=== PATIENT | male | born 1960 | race Caucasian/White ===

== ENCOUNTER 2021-02-19 20:34 | Inpatient (IN) | payer OTHER ==
[~2021-02-19] VITALS: Ht 165.1 cm; Wt 51.7 kg
--- NOTE | ~2021-02-19 | EMS ---
[place] [address] EMS Patient Care Report Name: GYPSY BACON Room #: PRE M.R.#: [id number] Admission: Attend Phys: Discharge: Date of : 58 Report #: [id number] THIS REPORT FOR: //name// Report Transmitted: 02/19/2021 20:10 EMS Care Summary [place], [place] Incident [id number] @ 02/19/2021 19:52 Incident Location [address] [place] [address] Patient GYPSY VEE Male, 60 Years 1960 Patient Address [address] [place] [address] Patient History Chronic Obstructive Pulmonary Disease (COPD),Hypertension (HTN),Emphysema, Patient Allergies No known allergies, Patient Medications Lisinopril, Atrovent, Albuterol, Chief Complaint COPD Disposition Transported No Lights/[place] Reason Breathing Problem Transported To [facility] Narrative Arrived on the scene, with P42, for a 60 y/o male that is walking to the ambulance with Fire. Fire said that he has been SOA for the last couple of days and he wants to go to the hospital. VS that they gave me were stable. Pt is in obvious resp. distress and is retracting. Pt is mid 70s [place] [address] EMS Patient Care Report Name: GYPSY BACON Room #: PRE M.R.#: [id number] Admission: Attend Phys: Discharge: Date of : 58 Report #: [id number] that he can not breathing and is having rapid and labored breathing. See Pt Assessment COPD See Flowchart. Assisted Pt onto the cot and to the ambulance. Assessment has the Pt retracting, very tight, and wheezing breath sounds. After got the breathing tx on the Pt, Pt began to relax and is breathing better but still a little labored. Transported to the hospital. Enroute, Pt became nauseated and vomited one time. Gave Pt Zofran to help with the nausea. No other changes or incidents. Moved the Pt from the cot to the hospital bed. Transferred care to receiving facility. Initial Vitals @20:20P: 96,R: 24,BP: 189/60,Pain: 0/10,GCS: 15,SpO2: 98,Revised Trauma: 12,MA Suspected: false @20:25P: 105,R: 24,BP: 90/62,Pain: 0/10,GCS: 15,CO: 2,SpO2: 99,Revised Trauma: 12,MA Suspected: false @20:06P: 101,R: 32,Pain: 0/10,GCS: 15,Glucose: 115,SpO2: 76,MA Suspected: false Assessments @20:04MENTAL:Person Oriented,Place Oriented,Time Oriented,Event Oriented,SKIN:HEENT:Head/Face: No Abnormalities,Eyes: No Abnormalities,Neck/Airway: No Abnormalities,LUNG SOUNDS:General: Nausea,General: Vomiting,Left Upper: No Abnormalities,Right Upper: No Abnormalities,ABDOMEN:General: Nausea,General: Vomiting,Left Upper: No Abnormalities,Right Upper: No Abnormalities,PELVIS//GI:EXTREMITIES:PULSE:NEURO: Impression Chronic Obstructive Pulmonary Disease (COPD) Procedures @20:04ALS AssessmentResponse: UnchangedSucceeded@20:09Saline Lock 5cc (20 ga) Site: Antecubital-LeftResponse: UnchangedSucceeded@20:20Albuterol - 2.5 Milligrams (mg) - NebulizedResponse: Improved@20:07Albuterol - 2.5 Milligrams (mg) - NebulizedResponse: Improved@20:07Atrovent - 0.5 Milligrams (mg) - NebulizedResponse: Improved@20:063-Lead ECGSucceeded@20:40Zofran - 4 Milligrams (mg) - Intravenous (IV)Response: Improved Timeline 19:50,Call Received 19:50,Dispatch Notified 19:52,Dispatched 19:53,En Route [address] [address] EMS Patient Care Report Name: GYPSY BACON Room #: PRE M.R.#: [id number] Admission: Attend Phys: Discharge: Date of : 58 Report #: [id number] 20:02,On Scene 20:04,At Patient 20:04,ALS Assessment,Response: UnchangedSucceeded, 20:06,3-Lead ECG,Succeeded, 20:06,BP: / M,PULSE: 101,RR: 32 R,SPO2: 76 Ox,ETCO2: ,B,PAIN: 0,GCS: 15, 20:07,Albuterol - 2.5 Milligrams (mg) - Nebulized,Response: Improved 20:07,Atrovent - 0.5 Milligrams (mg) - Nebulized,Response: Improved 20:09,Saline Lock 5cc 20 ga Site: Antecubital-Left,Response: UnchangedSucceeded, 20:17,Depart Scene 20:20,BP: 189/60 M,PULSE: 96,RR: 24 R,SPO2: 98 Ox,ETCO2: ,BG: ,PAIN: 0,GCS: 15, 20:20,Albuterol - 2.5 Milligrams (mg) - Nebulized,Response: Improved 20:25,BP: 90/62 M,PULSE: 105,RR: 24 R,SPO2: 99 Ox,ETCO2: ,BG: ,PAIN: 0,GCS: 15, 20:40,Zofran - 4 Milligrams (mg) - Intravenous (IV),Response: Improved 20:43,At Destination 20:51,Call Closed Disclaimer v1.1 Copyright 2020 [employer] This EMS Care Summary contains data elements from the applicable legal record (which may be displayed differently). It is designed to provide pertinent information for the following purposes: continuity of care, clinical quality, and state data reporting. The complete legal record is available to ED staff and administrators of the receiving hospital in [employer] Patient Tracker. All data is provided "as is."
[2021-02-19 20:35] VITALS: BP 123/90
[2021-02-19 20:45] LABS: BE(vivo) 16.4 mmol/L (-2 to +3); HCO3 48.7 mmol/L (22.0-26.0); PCO2 105.6 mmHg (35.0-45.0); PO2 80.1 mmHg (80.0-100.0); pH 7.282 (7.360-7.450); sO2 93.3 % (92.0-98.0)
[2021-02-19 21:26] LABS: ABSOLUTE NEUTROPHILS 7.3 thou/uL (1.4-8.2); BASOPHILS 0.8 % (0.0-2.0); EOSINOPHILS 0.8 % (0.0-3.0); HEMATOCRIT 40.1 % (42.0-52.0); HEMOGLOBIN 13.1 gm/dL (14.0-18.0); LYMPHOCYTES 6.5 % (24.0-44.0); MCH 32.1 pg (26.0-34.0); MCHC 32.6 g/dL (28.0-37.0); MCV 98.3 fL (80.0-100.0); MONOCYTES 5.6 % (1.0-8.0); PLATELET COUNT 246 thou/uL (150-400); POLYS 86.3 % (36.0-66.0); RBC 4.08 mil/uL (4.50-6.00); RDW 12.9 % (10.5-14.5); WBC 8.5 thou/uL (4.0-11.0)
[2021-02-19 21:36] LABS: BUN 9 mg/dL (7-18); CALCIUM 8.5 mg/dL (8.5-10.1); CHLORIDE 89 mmol/L (98-107); CREATININE 0.6 mg/dL (0.7-1.3); GLUCOSE 118 mg/dL (74-106); POTASSIUM 4.2 mmol/L (3.5-5.1); SODIUM 131 mmol/L (136-145)
[2021-02-19 21:37] LABS: CO2 > 45 mmol/L (21-32)
[2021-02-19 21:44] LABS: ALBUMIN 2.8 g/dL (3.4-5.0); DIRECT BILIRUBIN 0.1 mg/dL (<0.1-0.2); SGOT 25 U/L (15-37); SGPT 19 U/L (30-65); TOTAL BILIRUBIN 0.3 mg/dL (0.2-1.0); TOTAL PROTEIN 6.3 g/dL (6.4-8.2)
[2021-02-19 21:56] LABS: HCO3 57.4 mmol/L (22.0-26.0); PCO2 141.6 mmHg (35.0-45.0); PO2 98.2 mmHg (80.0-100.0); pH 7.226 (7.360-7.450); sO2 95.2 % (92.0-98.0)
[2021-02-19] MEDS ORDERED: ZESTRIL10 MG PO (22:15)
[2021-02-19] MEDS ORDERED: IPRAT-ALBUT 0.5-3 ML INH (22:15)
[2021-02-19] MEDS ORDERED: SYMBICORT160 MCG/4. INH (22:48)
[2021-02-20] VITALS (29 sets, daily range): BP systolic 76–191; BP diastolic 46–103
--- NOTE | 2021-02-20 02:02 | NUR ---
0110 -PT ARRIVED FROM ER VIA CART. PT ASSESSED PER ICU PROTOCOL, CONNECTED TO ICU MONITOR. PT ARRIVED ON BIPAP AT 35%. A&OX4, REPORTS HE DRINKS [address] ROSENBERG CALLED AND NOTIFIED OF PTS CONDITION. JENNIFER ROGERS CALLED AND UPDATED ON PTS CONDITION. CIWA ORDERS OBTAINED. 0200 - PT NOW CONFUSED AND ATTEMPTING TO TAKE BIPAP MASK OFF. TACHYPNEIC IN THE 40'S, MAINTAINING AN O2 SAT OF 97%.
[2021-02-20 05:15] LABS: HEMATOCRIT 37.1 % (42.0-52.0); HEMOGLOBIN 12.6 gm/dL (14.0-18.0); MCH 33.3 pg (26.0-34.0); MCHC 33.9 g/dL (28.0-37.0); MCV 98.1 fL (80.0-100.0); RBC 3.78 mil/uL (4.50-6.00); RDW 12.7 % (10.5-14.5); WBC 5.7 thou/uL (4.0-11.0)
[2021-02-20 05:23] LABS: BE(vivo) 18.7 mmol/L (-2 to +3); HCO3 49.6 mmol/L (22.0-26.0); PO2 65.6 mmHg (80.0-100.0); pH 7.338 (7.360-7.450); sO2 90.1 % (92.0-98.0)
[2021-02-20 05:24] LABS: PCO2 94.5 mmHg (35.0-45.0)
[2021-02-20 05:58] LABS: ANION GAP < 0 mmol/L (7-16); BUN 13 mg/dL (7-18); CALCIUM 8.3 mg/dL (8.5-10.1); CHLORIDE 89 mmol/L (98-107); CREATININE 0.9 mg/dL (0.7-1.3); GLUCOSE 127 mg/dL (74-106); POTASSIUM 4.8 mmol/L (3.5-5.1); SODIUM 132 mmol/L (136-145)
[2021-02-20 06:00] LABS: FOLIC ACID 22.6 ng/mL (8.6-58.9)
[2021-02-20 06:01] LABS: MAGNESIUM 1.8 mg/dL (1.8-2.4); PHOSPHORUS 3.7 mg/dL (2.5-4.9)
[2021-02-20 06:10] LABS: CO2 45 mmol/L (21-32)
--- NOTE | 2021-02-20 09:23 | NUR ---
Chart review. Unable to visit with emily sol with activity. Use of bipap support. Noted he smokes cig and drinks beer at home. Been to [facility] recently. Will cont following as needed for dc needs.
[2021-02-20 11:39] LABS: BE(vivo) 15.6 mmol/L (-2 to +3); HCO3 44.5 mmol/L (22.0-26.0); PO2 74.7 mmHg (80.0-100.0); pH 7.375 (7.360-7.450); sO2 93.9 % (92.0-98.0)
[2021-02-20 11:40] LABS: PCO2 77.8 mmHg (35.0-45.0)
[2021-02-21] VITALS (23 sets, daily range): BP systolic 117–156; BP diastolic 65–87
--- NOTE | 2021-02-21 10:38 | NUR ---
ASSUMED CARE OF PT AT 0700. DR. ELLIOTT AT BEDSIDE AT 1030. WOULD LIKE NOCTURNAL BIPAP FOR PT WHILE ADMITTED AND AT HOME.
--- NOTE | 2021-02-21 12:22 | EKG ---
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 BURRIS : 1960 Requested By: Isabell Ramirze Order Number: [id number] MD: Josué Pan Measurements Intervals [place] Rate: 88 P: 53 CO: 158 QRS: 16 QRSD: 96 T: 88 QT: 374 QTc: 453 Interpretive Statements Sinus rhythm Left ventricular hypertrophy Anterior Q waves, possibly due to LVH Baseline wander in lead(s) V6 No previous ECG available for comparison Electronically Signed On 02-21-2021 12:22:32 CDT by Josué Pan [email or web address] <ELECTRONICALLY SIGNED> By: Josué Pan MD, [facility] 02/21/21 1222 43 Josué Pan MD, [facility] /EPI
--- NOTE | 2021-02-21 13:34 | NUR ---
SPOKE TO PT SISTER AKUA AT 1145. UPDATED ON POC AND ANSWERED QUESTIONS.
--- NOTE | 2021-02-21 14:08 | NUR ---
PT REQUESTING TO LEAVE AMA. CONTACTED DR. ELLIOTT HE SAID THAT IT IS NOT APPROPRAIATE FOR PT TO LEAVE DUE TO HIS MEDICAL CONDITION. ATTEMPTED TO CONTACT PT'S SISTER AKUA, BUT THE NUMBER ON FILE IS NOT A WORKING NUMBER.
--- NOTE | 2021-02-21 15:25 | NUR ---
Per attending in AM review of case: will follow as pulmonary notes for further stabilization. Pulmonology review as COPD exacerbation and a baseline of 2-03L 02 with HTN and both tobacco and ETOH use daily. Last noted at 02 sat of 98 on 2L via [place]. CM will follow per MD direction as needed as sister Fanta at [phone] is listed as next of kin. Noting will need therapy evaluations once deemed medically able to determine next level of care for discharge planning. Noted nursing note of attempts to reach Fanta the patient's sister without success of current success and left voicemail for Fanta to return a call to ICU at [phone] and case management at [phone].
--- NOTE | 2021-02-21 18:39 | NUR ---
SPOKE TO PT AT 1400. SHE EXPLAINED THAT DR. ELLIOTT UPDATED HER ON PT'S WISHES TO LEAVE AMA AND SHE UNDERSTANDS THAT IT IS NOT SAFE FOR HIM TO LEAVE AT THIS TIME. SPOKE WITH AND PT IS AGREEABLE TO STAY.
[2021-02-22] VITALS: BP 140/80
[2021-02-22 00:38] VITALS: BP 147/70
[2021-02-22 04:00] VITALS: BP 149/72
[2021-02-22 04:42] LABS: ANION GAP < 0 mmol/L (7-16); BUN 21 mg/dL (7-18); CALCIUM 8.6 mg/dL (8.5-10.1); CHLORIDE 95 mmol/L (98-107); CO2 39 mmol/L (21-32); CREATININE 0.9 mg/dL (0.7-1.3); GLUCOSE 117 mg/dL (74-106); MAGNESIUM 1.7 mg/dL (1.8-2.4); PHOSPHORUS 2.4 mg/dL (2.5-4.9); SODIUM 132 mmol/L (136-145)
[2021-02-22 07:55] VITALS: BP 148/74
--- NOTE | 2021-02-22 08:48 | NUR ---
PT TRANSFERRED TO UNIT AFTER MIDNIGHT. UPON ASSESSMENT, PT AOX4. PT DENIES PAIN AND SOB WHILE ON 3L O2 VIA NC, REPORTS SOB WITH EXERTION, NO DESATURATIONS NOTED. PT TOLERATING PO INTAKE OF FLUIDS AND REGULAR DIET WITHOUT ISSUE. PT WITHOUT NAUSEA OR EMESIS. PT VOIDING PER URINAL. PT RESTING IN BED FOR REMAINDER OF SHIFT, NOTED TO SHIFT INDEPENDENTLY. PT REPORTS TINGLING IN BOTH FEET, CAPILLARY REFILL LESS THAN 3SEC, PERIPHERAL PULSES PALPABLE IN ALL EXTREMITIES. PT ENCOURAGED TO NOTIFY STAFF FOR ALL NEEDS, CALL LIGHT WITHIN REACH, BED ALARM ON, BED LOCKED IN LOWEST POSITION, FREQUENT MONITORING WILL CONTINUE.
--- NOTE | 2021-02-22 15:20 | NUR ---
PT IS A&OX4. PT IS CURRENTLY ON 3L NC, WHICH HE WEARS AT HOME. PT DENIES ANY PAIN OR DISCOMFORT AND IS TOLERATING DIET AND MEDICATIONS.
[2021-02-22 19:50] VITALS: BP 142/83
[2021-02-23 04:35] VITALS: BP 164/95
--- NOTE | 2021-02-23 05:26 | NUR ---
PT LYING IN BED. VOIDING PER URINAL. TYLENOL PROVIDING PAIN RELIEF. RESTING COMFORTABLY. NO NEEDS VOICED. CALL LIGHT WITHIN REACH. FREQUENT OBSERVATION.
[2021-02-23 08:30] VITALS: BP 157/82
[2021-02-23 12:05] VITALS: BP 149/80
[2021-02-23 13:53] LABS: BE(vivo) 9.9 mmol/L (-2 to +3); HCO3 35.9 mmol/L (22.0-26.0); PCO2 54.5 mmHg (35.0-45.0); PO2 74.1 mmHg (80.0-100.0); pH 7.437 (7.360-7.450); sO2 95.1 % (92.0-98.0)
[2021-02-23 16:00] VITALS: BP 130/54
[2021-02-23 16:15] VITALS: BP 138/80
[2021-02-23 19:50] VITALS: BP 132/87
[2021-02-24 04:23] LABS: HEMATOCRIT 35.7 % (42.0-52.0); MCH 32.7 pg (26.0-34.0); MCHC 33.5 g/dL (28.0-37.0); MCV 97.8 fL (80.0-100.0); RBC 3.65 mil/uL (4.50-6.00); RDW 13.4 % (10.5-14.5); WBC 8.2 thou/uL (4.0-11.0)
[2021-02-24 04:35] VITALS: BP 158/82
[2021-02-24 04:39] LABS: CALCIUM 8.2 mg/dL (8.5-10.1); CREATININE 0.9 mg/dL (0.7-1.3); MAGNESIUM 1.8 mg/dL (1.8-2.4); POTASSIUM 4.2 mmol/L (3.5-5.1)
--- NOTE | 2021-02-24 05:43 | NUR ---
PT AMBULATING TO BATHROOM WITH STANDYBY ASSIST AND IS TOLERATING FAIR. DENIES NEED FOR PAIN MEDICINE. RESTING COMFORTABLY. NO NEEDS VOICED. CALL LIGHT WITHIN REACH. FREQUENT OBSERVATION.
[2021-02-24 08:00] VITALS: BP 152/63
[2021-02-24 11:00] VITALS: BP 133/80
[2021-02-24 16:00] VITALS: BP 114/60
[2021-02-24 19:15] VITALS: BP 147/87
--- NOTE | 2021-02-25 03:44 | NUR ---
Assumed pt care at 1900. Pt is alert and oriented. Call light within reach. No sign of distress noted in pt. Assessment completed and documented. Denies pain. Scheduled meds administered to pt. Pt is stable through the night. Continue to monitor. No further needs at this time.
[2021-02-25 03:59] VITALS: BP 155/86
[2021-02-25 08:00] VITALS: BP 151/92
[2021-02-25] MEDS ORDERED: PREDNISONE 20 M20 M1 PO (13:40)
[2021-02-25] MEDS ORDERED: LORAZEPAM 0.50.5 MG PO (13:40)
[2021-02-25] MEDS ORDERED: PRENATAL PO (13:40)
[2021-02-25] MEDS ORDERED: Nicotine Transdermal TRANSDERM (13:40)
[2021-02-25] MEDS ORDERED: LEVOFLOXACIN500 MG PO (13:40)
[2021-02-25] MEDS ORDERED: VITAMIN B-1100 M2 PO (13:40)
[2021-02-25] MEDS ORDERED: ACETAMINOPHEN325 M1 PO (13:40)
[2021-02-25 13:45] VITALS: BP 155/86
--- NOTE | 2021-02-25 17:27 | NUR ---
after 6 days in hospital able to update patients "patient pay" status with ins. patient with need for HH care he has no preference. Patient reports no PCP. Hospitalist to follow for HH care. Jose G with referral and accepting. Plan to see patient THurs. Faxed orders for start of care. Liason called patient today. Patient reports he has oxygen at home from [facility].
== END 2021-02-25 14:44 | disposition home health service (06) | DRG 193 ==
LOC: ER 20:34 → EDBD 20:34 → 2N 22:29 → EROBS 22:29 → ICU 22:29 → 2N 02-22 00:37
PROVIDERS: Emergency Medicine; Nurse Practitioner Family; Pediatrics; ADMIT Internal Medicine; ATTEND Internal Medicine
PROC: 5A09357 Assistance with Respiratory Ventilation, Less than 24 Consecutive Hours, Continuous Positive Airway Pressure (ICD-10-PCS; principal; 2021-02-19)
PROC: 5A09357 Assistance with Respiratory Ventilation, Less than 24 Consecutive Hours, Continuous Positive Airway Pressure (ICD-10-PCS; 2021-02-20)
PROC: 5A09357 Assistance with Respiratory Ventilation, Less than 24 Consecutive Hours, Continuous Positive Airway Pressure (ICD-10-PCS; 2021-02-21)
PROC: 5A09357 Assistance with Respiratory Ventilation, Less than 24 Consecutive Hours, Continuous Positive Airway Pressure (ICD-10-PCS; 2021-02-22)
DX: J18.9 Pneumonia, unspecified organism (principal); J96.21 Acute and chronic respiratory failure with hypoxia; J96.22 Acute and chronic respiratory failure with hypercapnia; J44.1 Chronic obstructive pulmonary disease with (acute) exacerbation; F10.239 Alcohol dependence with withdrawal, unspecified; J44.0 Chronic obstructive pulmonary disease with (acute) lower respiratory infection; F17.210 Nicotine dependence, cigarettes, uncomplicated; I10 Essential (primary) hypertension; J20.9 Acute bronchitis, unspecified; F10.20 Alcohol dependence, uncomplicated; E78.5 Hyperlipidemia, unspecified; R53.81 Other malaise; Z20.822 Contact with and (suspected) exposure to COVID-19; Z71.6 Tobacco abuse counseling; Z91.19 Patient's noncompliance with other medical treatment and regimen; Z79.899 Other long term (current) drug therapy
CPT/HCPCS: 10078; 10081; 10797

== ENCOUNTER 2021-03-03 17:34 | Inpatient (IN) | payer OTHER ==
[~2021-03-03] VITALS: Ht 165.1 cm; Wt 50.3 kg
--- NOTE | ~2021-03-03 | EMS ---
[place] [id number] EMS Patient Care Report Name: GYPSY PEREZ Room #: 240-P ADM IN M.R.#: [id number] Admission: 03/03/21 Attend Phys: Khoa Almaguer MD Discharge: Date of : 58 Report #: [id number] THIS REPORT FOR: //name// Report Transmitted: 03/04/2021 08:57 EMS Care Summary [place], [place]/[facility] Incident [id number] @ 03/03/2021 16:49 Incident Location [address] [place] [address] Patient GYPSY PEREZ Male, 60 Years 1960 Patient Address [address] [place] [address] Patient History Chronic Obstructive Pulmonary Disease (COPD),Hypertension (HTN),Depression, Patient Allergies No known allergies, Patient Medications Lisinopril, Diltiazem, Bupropion, Chief Complaint Shortness of air Disposition Transported No Lights/[place] Reason Breathing Problem Transported To [facility] Narrative Progressively worse shortness of air. Pt. also complains of swelling in his lower extremities and feet for about 3 weeks now. Pt. is on 2 lpm oxygen all the time, and 3-4 with exertion. Pt. denies chest pain, [place] [address] EMS Patient Care Report Name: GYPSY PEREZ Room #: 240-P ADM IN M.R.#: [id number] Admission: 03/03/21 Attend Phys: Khoa Almaguer MD Discharge: Date of : 58 Report #: [id number] Pt. found sitting in a chair with labored breathing but tolerating it well rule out COPD exacerbation vs. CHF Vitals, oxygen bumped up and continued at 4 lpm, Assisted to cot, secured, loaded, IV, transported to [place] without changes, assisted to bed in room 11, care transferred to staff counsel with report given Initial Vitals @17:17P: 101,R: 20,BP: 152/84,Pain: 0/10,GCS: 15,SpO2: 97,Revised Trauma: 12, Assessments @17:14MENTAL:Time Oriented,Person Oriented,Event Oriented,Place Oriented,SKIN:HEENT:LUNG SOUNDS:ABDOMEN:PELVIS//GI:EXTREMITIES:PULSE:Radial: 2+ Normal,NEURO: Impression Respiratory disorder Procedures @17:03ALS AssessmentResponse: UnchangedSucceeded@17:10StretcherResponse: Unchanged@17:15Saline Lock 10cc (20 ga) Site: Forearm-LeftResponse: UnchangedSucceeded Timeline 16:48,Call Received 16:48,Dispatch Notified 16:49,Dispatched 16:49,En Route 16:59,On Scene 17:01,At Patient 17:03,ALS Assessment,Response: UnchangedSucceeded, 17:10,Stretcher,Response: Unchanged 17:13,Depart Scene 17:15,Saline Lock 10cc 20 ga Site: Forearm-Left,Response: UnchangedSucceeded, 17:17,BP: 152/84 M,PULSE: 101,RR: 20 R,SPO2: 97 Ox,ETCO2: ,BG: ,PAIN: 0,GCS: 15, 17:49,At Destination 17:58,Call Closed Disclaimer v1.1 Copyright 2020 [employer] This EMS Care Summary contains data elements from the applicable legal record (which may be displayed differently). It is designed to provide pertinent information for the following purposes: continuity of care, clinical quality, and state data reporting. The complete legal record is available to ED staff [facility] [address] [place] [address] EMS Patient Care Report Name: GYPSY PEREZ Room #: 240-P ADM IN [facility].#: [id number] Admission: 03/03/21 Attend Phys: Khoa Almaguer MD Discharge: Date of : 58 Report #: [id number] and administrators of the receiving hospital in [employer]'s Patient Tracker. All data is provided "as is."
[2021-03-03 17:34] VITALS: BP 161/87
[~2021-03-03 17:34] MED LIST: ACETAMINOPHEN325 M1 PO; IPRAT-ALBUT 0.5-3 ML INH; LEVOFLOXACIN500 MG PO; LORAZEPAM 0.50.5 MG PO; Nicotine Transdermal TRANSDERM; PREDNISONE 20 M20 M1 PO; PRENATAL PO; SYMBICORT160 MCG/4. INH; VITAMIN B-1100 M2 PO; ZESTRIL10 MG PO
[2021-03-03 18:04] LABS: HEMOGLOBIN 12.3 gm/dL (14.0-18.0); MCH 32.1 pg (26.0-34.0); MCHC 32.5 g/dL (28.0-37.0); MCV 98.9 fL (80.0-100.0); PLATELET COUNT 318 thou/uL (150-400); RBC 3.84 mil/uL (4.50-6.00); RDW 13.2 % (10.5-14.5); WBC 9.7 thou/uL (4.0-11.0)
[2021-03-03 18:07] LABS: ANION GAP < 0 mmol/L (7-16); BUN 11 mg/dL (7-18); CALCIUM 8.5 mg/dL (8.5-10.1); CHLORIDE 94 mmol/L (98-107); CO2 41 mmol/L (21-32); CREATININE 0.5 mg/dL (0.7-1.3); GLUCOSE 155 mg/dL (74-106); POTASSIUM 5.1 mmol/L (3.5-5.1); SODIUM 130 mmol/L (136-145)
[2021-03-03 18:10] LABS: BE(vivo) 11.4 mmol/L (-2 to +3); PCO2 101.9 mmHg (35.0-45.0); PO2 111.9 mmHg (80.0-100.0); pH 7.243 (7.360-7.450)
[2021-03-03 18:20] LABS: ALBUMIN 2.5 g/dL (3.4-5.0); SGOT 22 U/L (15-37); SGPT 23 U/L (30-65); TOTAL BILIRUBIN 0.1 mg/dL (0.2-1.0); TOTAL PROTEIN 5.6 g/dL (6.4-8.2)
[2021-03-03 19:16] VITALS: BP 126/78
[2021-03-03 19:16] LABS: ABSOLUTE NEUTROPHILS 9.1 thou/uL (1.4-8.2)
[2021-03-03 20:55] LABS: BE(vivo) 14.2 mmol/L (-2 to +3); HCO3 42.6 mmol/L (22.0-26.0); PCO2 72.4 mmHg (35.0-45.0); PO2 79.9 mmHg (80.0-100.0); pH 7.388 (7.360-7.450); sO2 95.2 % (92.0-98.0)
[2021-03-04] VITALS (7 sets, daily range): BP systolic 98–151; BP diastolic 52–87
[2021-03-04 05:37] LABS: HEMATOCRIT 35.6 % (42.0-52.0); MCH 32.9 pg (26.0-34.0); MCHC 33.7 g/dL (28.0-37.0); MCV 97.5 fL (80.0-100.0); RBC 3.65 mil/uL (4.50-6.00); RDW 12.9 % (10.5-14.5); WBC 5.4 thou/uL (4.0-11.0)
[2021-03-04 06:14] LABS: ANION GAP < 0 mmol/L (7-16); BUN 14 mg/dL (7-18); CALCIUM 8.5 mg/dL (8.5-10.1); CHLORIDE 91 mmol/L (98-107); CO2 43 mmol/L (21-32); CREATININE 0.8 mg/dL (0.7-1.3); GLUCOSE 119 mg/dL (74-106); SODIUM 132 mmol/L (136-145)
--- NOTE | 2021-03-04 07:17 | EKG ---
[address] [address] ELECTROCARDIOGRAM REPORT Name: LAURELYOLANDAGYPSY Room #: 240-P ADM IN M.R.#: [id number] Admission: 03/03/21 Attend Phys: Khoa Almaguer MD Discharge: Date of : 58 Report #: [id number] [facility] ED Test Date: 2021-03-03 Test Time: 17:39:08 Pat Name: GYPSY PEREZ Department: Room: 240 Gender: M Scale Expert: EDITA : 1960 Requested By: Jimmy Bowser Order Number: [id number] MD: Yobani Fernandez Measurements Intervals [place] Rate: 95 P: 96 [place]: 152 QRS: 29 QRSD: 89 T: 72 QT: 358 QTc: 450 Interpretive Statements Sinus rhythm Anteroseptal infarct, age indeterminate Compared to ECG 02/19/2021 20:44:20 Myocardial infarct finding now present Left ventricular hypertrophy no longer present Q waves no longer present Electronically Signed On 03-04-2021 7:17:32 CDT by Yobani Fernandez [email or web address] <ELECTRONICALLY SIGNED> By: Yobani Fernandez MD, [facility] 03/04/21 0717 1739 1739 Yobani Fernandez MD, [facility] /EPI
--- NOTE | 2021-03-04 09:03 | 2DMMODE ---
[facility] [place] [address] [address] 2 D/M-MODE ECHOCARDIOGRAM Name: GYPSY PEREZ Room #: 240-P ADM IN M.R.#: [id number] Admission: 03/03/21 Attend Phys: Khoa Almaguer MD Discharge: Date of : 58 Report #: [id number] THIS REPORT FOR: cc: MATA - No family physician/PCP FAM - No family physician/PCP Yobani Fernandez MD [facility] ~ APPROVED REPORT Study performed: 03/04/2021 08:03:28 EXAM: Comprehensive 2D, Doppler, and color-flow Echocardiogram Patient Location: ICU Room #: 240 Status: routine BSA: 1.57 HR: 70 bpm BP: 98/52 mmHg Rhythm: NSR Other Information Study Quality: Adequate Technically limited study due to thin body habitus. COPD. Only subcostal view.. Indications Short of breath, elevated troponin, BLE. Hx: COPD, ETOH/Tobacco abuse, HTN, HLP. 2D Dimensions RVDd: 32.57 mm IVSd: 13.76 (7-11mm) LVOT Diam: 20.04 (18-24mm) LVDd: 44.80 mm PWd: 14.34 (7-11mm) LVDs: 35.18 (25-40mm) Left Atrium: 31.23 (27-40mm) Aortic Root: 33.98 mm Volumes Left Atrial Volume (Systole) Single Plane 4CH: 69.49 mL Single Plane 2CH: 50.33 mL LA ESV Index: 42.00 mL/m2 Aortic Valve AoV Peak Maciej.: 4.49 m/s [facility] [address] [place] [address] 2 D/M-MODE ECHOCARDIOGRAM Name: GYPSY PEREZ Room #: 240-P [facility] IN ..#: [id number] Admission: 03/03/21 Attend Phys: Audra Hart Discharge: Date of : 58 Report #: [id number] AO Peak Gr.: 80.71 mmHg LVOT Max P.96 mmHg AO Mean Gr.: 49.60 mmHg AO V2 Mean: 3.36 m/s LVOT Max V: 0.70 m/s AO V2 VTI: 108.47 cm LISANDRA Vmax: 0.49 cm2 AI Vmax: 4.68 m/s AI [place]: 3.54 m/s2 AI PHT: 383.09 ms Mitral Valve E/A Ratio: 0.7 MV Decel. Time: 197.32 ms MV E Max Maciej.: 0.52 m/s MV A Maciej.: 0.71 m/s MV PHT: 57.22 ms IVRT: 100.35 ms Pulmonary Valve PV Peak Maciej.: 1.03 m/s PV Peak Gr.: 4.27 mmHg Tricuspid Valve TR Peak Maciej.: 2.70 m/s RAP Estimate: 10.00 mmHg TR Peak Gr.: 29.22 mmHg PA Pressure: 39.00 mmHg Left Ventricle The left ventricle is normal size. Mild to moderate concentric left ventricular hypertrophy. Left ventricular systolic function is low normal. LVEF is 50%. Mild diastolic dysfunction is present (impaired relaxation pattern). Right Ventricle The right ventricle is normal size. The right ventricular systolic function is normal. Atria Left atrium is mildly dilated. The right atrium size is normal. Aortic Valve Aortic valve is heavily calcified. Mild aortic regurgitation. There is severe valvular aortic stenosis. Calculated aortic valve area is 0.5 cm2 with maximum pressure gradient of 81 mmHg and mean pressure gradient of 50 mmHg. Mitral Valve [facility] [address] [place] [address] 2 D/M-MODE ECHOCARDIOGRAM Name: GYPSY PEREZ Room #: 240-P [facility] IN .R.#: [id number] Admission: 03/03/21 Attend Phys: Audra Hart Discharge: Date of : 58 Report #: [id number] The mitral valve is normal in structure. Trace mitral regurgitation. No evidence of mitral valve stenosis. Tricuspid Valve The tricuspid valve is normal in structure. Trace tricuspid regurgitation. Estimated PAP is 35-40mmHg. Pulmonic Valve The pulmonary valve is normal in structure. Mild to moderate pulmonic regurgitation. Great Vessels The aortic root is normal in size. Ascending aorta is not well visualized. IVC is normal in size and collapses <50% with inspiration. Pericardium There is no pericardial effusion. <Conclusion> Normal left ventricle size with mild to moderate concentric hypertrophy Ejection fraction 50% Normal right ventricular size/function Left atrium mildly dilated Aortic valve heavily calcified Severe aortic valve stenosis aortic valve area estimated 0.5 cm Aortic valve mean gradient of 50 mmHg Mild aortic valve insufficiency Moderate mitral valve insufficiency Trace tricuspid valve insufficiency Pulmonary systolic pressure estimated 35 mmHg No pericardial effusion Normal aortic root size. <ELECTRONICALLY SIGNED> By: Yobani Fernandez MD, FACC 03/04/21901 1 1 Yobani Fernandez MD, FACC /INF
[2021-03-04 09:27] LABS: BE(vivo) 18.6 mmol/L (-2 to +3); HCO3 45.8 mmol/L (22.0-26.0); PCO2 68.5 mmHg (35.0-45.0); PO2 92.1 mmHg (80.0-100.0); pH 7.443 (7.360-7.450)
--- NOTE | 2021-03-04 11:51 | NUR ---
Spoke with pt over phone - gave general update and answered all questions.
--- NOTE | 2021-03-04 12:03 | NUR ---
Chart review. Cm visited with yandy and sister all via same phone call to yandy # [phone]. Intro to cm and dcp. [employer]OUR[employer] he live home with , no stair, manage own medication. home oxygen 2L nasal cannula. No home bipap or cpap at home. drives vehicle. no pcp. no rehab or hh in past. does not work, he cant work he is on disability per yandy. Not covid vaccinated, had many false positive recently and went to store to get covid vaccine and they were closed per yandy.
--- NOTE | 2021-03-04 13:55 | EKG ---
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 : 1960 Requested By: Lisa Tristan Order Number: [id number] MD: Yobani Fernandez Measurements Intervals [place] Rate: 66 P: 72 [place]: 162 QRS: 36 QRSD: 96 T: 44 QT: 457 QTc: 479 Interpretive Statements Sinus rhythm Ventricular premature complex Probable left atrial enlargement Left ventricular hypertrophy J point elevation Borderline prolonged QT interval Compared to ECG 03/03/2021 17:39:08 Ventricular premature complex(es) now present Left ventricular hypertrophy now present ST (T wave) deviation now present Myocardial infarct finding still present Electronically Signed On 03-04-2021 13:55:05 CDT by Yobani Fernandez [email or web address] <ELECTRONICALLY SIGNED> By: Yobani Fernandez MD, FACC 03/04/21 1355 0932 0932 Yobani Fernandez MD, FAC /EPI
[2021-03-05 01:06] LABS: GLYCOHEMOGLOBIN (HGB A1C) 5.9 % (4.8-5.6)
--- NOTE | 2021-03-05 03:05 | NUR ---
PATIENT TRANSFERRED TO UNIT FROM ICU VIA WHEELCHAIR. PATIENT IS AAOX4 AND FOLLOWING ALL COMMANDS. PATIENT IS ON 3L NC. PATIENT IS ABLE TO AMBULATE BUT IS UNSTEADY. REQUIRES STANDBY ASSISTANCE. PATIENT HAS A NONPRODUCTIVE COUGH. URINATING WITHOUT ANY ISSUES. SR ON THE MONITOR. SCORED 0 ON HIS CIWA. DENIES PAIN OR NEEDS AT THIS TIME. NO ISSUES WITH SKIN NOTED. COMPLIANT WITH MEDICATION AND TREATMENT. WILL CONTINUE TO MONITOR FOR CHANGES IN STATUS.
[2021-03-05 04:12] VITALS: BP 155/71
[2021-03-05 08:00] VITALS: BP 158/70
--- NOTE | 2021-03-05 11:59 | NUR ---
60-year-old male remains for treatment which continues for: Acute on chronic hypercapnic respiratory failure, COPD exacerbation, Elevated Troponin, Hyperglycemia, HTN, Tobaccoism and alcoholism. Per attending AM MD review: Plan to discharge home with [facility]. Sister Fanta at [phone] remains listed as next of kin. Notably patient discharged on 02-25-21 to [facility] with Hospitalist following as patient has no PCP. Therapy evaluations will be needed in determining next level of care. CM continues to follow MD's direction for care and transition and will intervene as needs are identified from planned discharge for today.
[2021-03-05 12:13] VITALS: BP 131/81
[2021-03-05] MEDS ORDERED: NORVASC5 MG PO (12:20)
[2021-03-05] MEDS ORDERED: PEPCID20 MG PO (12:20)
[2021-03-05] MEDS ORDERED: IPRAT-ALBUT 0.5-3 ML INH (12:20)
[2021-03-05] MEDS ORDERED: PREDNISONE 20 M20 M1 PO (12:20)
[2021-03-05] MEDS ORDERED: AZITHROMYCIN500 MG PO (12:20)
[2021-03-05 12:30] VITALS: BP 131/81
--- NOTE | 2021-03-05 12:31 | NUR ---
Pt dcing home today. He has declined f/u visits per Harriett OTOOLE x 2. He has been seen by therapy this morning and was indep with gait/adls. No f/u recommended. Pt has home o2 in place and Jose G ortiz did setup a new pcp appt for him for early next week. The pt lives with his and sister. No cm interventions indicated. Dc home today.
[2021-03-05 13:51] VITALS: BP 131/81
--- NOTE | 2021-03-05 15:15 | NUR ---
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 CONDUCTED D/C EDUCATION WITH PT. PT REQUESTED PHARMACY TO DIFFERENT LOCATION. EDUCATION CONDUCTED ON RX MEDICATION CHANGES. PT COMMUNICATED UNDERSTANDING. PT TO D/C HOME WITH SISTER. NO CONCERNS AT THIS TIME.
--- NOTE | 2021-03-06 10:26 | NUR ---
SISTER CALLED TO SAY THAT THE PHARMACY LISTED IN [place] DID NOT GET THE PRESCRIPTIONS ([facility]) NOTE BY D/C NURSE STATED THAT PT CHANGED [facility] - CHECKED WITH [facility] AND THEY DID NOT GET THE PRESCRIPTIONS. CALLED SISTER AND STATED THAT PREVIOUS PHARMACY THAT WAS LISTED MUST HAVE BEEN SENT TO THE PRIOR PHARMACIES LISTED - SISTER STATED THIS WAS JOSE AND SHE WOULD CALL AND CHECK WITH THEM TO SEE IF THEY HAD THE PRESCRIPTIONS.
== END 2021-03-05 17:15 | disposition home or self-care (01) | DRG 189 ==
LOC: ER 17:34 → EROBS 20:37 → ICU 20:37 → EROBS 20:38 → ICU 03-04 01:58 → 2N 03-04 23:12
PROVIDERS: Nurse Practitioner; Nurse Practitioner Family; Pediatrics; ADMIT Hospitalist; ATTEND Hospitalist
PROC: 5A09357 Assistance with Respiratory Ventilation, Less than 24 Consecutive Hours, Continuous Positive Airway Pressure (ICD-10-PCS; principal; 2021-03-03)
PROC: 5A09357 Assistance with Respiratory Ventilation, Less than 24 Consecutive Hours, Continuous Positive Airway Pressure (ICD-10-PCS; 2021-03-04)
DX: J96.22 Acute and chronic respiratory failure with hypercapnia (principal); J44.1 Chronic obstructive pulmonary disease with (acute) exacerbation; E87.1 Hypo-osmolality and hyponatremia; I50.9 Heart failure, unspecified; F17.210 Nicotine dependence, cigarettes, uncomplicated; R73.9 Hyperglycemia, unspecified; I11.0 Hypertensive heart disease with heart failure; F10.20 Alcohol dependence, uncomplicated; I35.0 Nonrheumatic aortic (valve) stenosis; E87.8 Other disorders of electrolyte and fluid balance, not elsewhere classified; Z79.899 Other long term (current) drug therapy; Z71.6 Tobacco abuse counseling; Z71.41 Alcohol abuse counseling and surveillance of alcoholic; Z20.822 Contact with and (suspected) exposure to COVID-19
CPT/HCPCS: 10081

== ENCOUNTER 2021-06-28 16:48 | Inpatient (IN) | payer OTHER ==
[~2021-06-28] VITALS: Ht 165.1 cm; Wt 45.3 kg
--- NOTE | ~2021-06-28 | EMS ---
[address] [address] EMS Patient Care Report Name: GYPSY PEREZ Room #: 247-P ADM IN M.R.#: [id number] Admission: 06/28/21 Attend Phys: Shlomo Varma MD Discharge: Date of : 58 Report #: [id number] THIS REPORT FOR: //name// Report Transmitted: 07/01/2021 10:31 EMS Care Summary [place], [place]/[facility] Incident [phone] @ 06/28/2021 16:04 Incident Location [address] [place] [address] Patient GYPSY PEREZ Male, 61 Years 1960 Patient Address [address] [place] [address] Patient History Chronic Obstructive Pulmonary Disease (COPD),Hypertension (HTN),Smoking,Depression, Patient Allergies No known allergies, Patient Medications Bupropion, Albuterol, Diltiazem, Lisinopril, Chief Complaint AMS Disposition Transported No Lights/[place] Dispatch Reason Unconscious/Fainting Transported To [facility] Narrative PT FOUND SITTING ON COUCH IN LIVING ROOM OF HIS HOME. P42 ON SCENE. PTS FAMILY ON SCENE STATES THAT PT HAS BEEN INCREASINGLY CONFUSED SINCE THIS MORNING. PTS FAMILY STATES THAT PT IS CONFUSED AND SLOW TO ANSWER QUESTIONS, WHICH IS [address] [address] EMS Patient Care Report Name: GYPSY PEREZ Room #: 247-P ADM IN M.R.#: [id number] Admission: 06/28/21 Attend Phys: Shlomo Varma MD Discharge: Date of : 58 Report #: [id number] ABNORMAL FOR HIM. PT GIVES EMS CONFUSED ANSWERS NOTED. PTS FAMILY STATES THAT PT HAS NOT HAD ANY ETOH OR DRUGS TO THEIR KNOWLEDGE. PTS FAMILY STATES THAT PT HAS TAKEN HIS PRESCRIPTION MEDS NOTED. PT IS ON O2 AT ALL TIMES, O2 CONT ENROUTE. PT HAS NO VISIBLE TRAUMA. PT HAS NO COMPLAINTS OF PAIN, SOB, CP OR TRAUMA. NO CHANGES NOTED ENROUTE. Initial Vitals @16:22P: 95,R: 18,BP: 198/71,Pain: 0/10,GCS: 14,SpO2: 87,Revised Trauma: 12, @PTAP: 90,R: 18,BP: 112/55,Pain: 0/10,GCS: 14,Glucose: 108,SpO2: 98,Revised Trauma: 12, @16:25P: 84,R: 16,BP: 198/79,Pain: 0/10,GCS: 15,CO: 20,SpO2: 97,Revised Trauma: 12, Assessments @16:16MENTAL:Person Oriented,Confused,SKIN:No Abnormalities,HEENT:Head/Face: No Abnormalities,LUNG SOUNDS:General: No Abnormalities,ABDOMEN:General: No Abnormalities,PELVIS//GI:No Abnormalities,EXTREMITIES:PULSE:NEURO:No Abnormalities, Impression Altitude Sickness Procedures @16:24 IV Therapy - Saline Lock 0cc (20 ga) Site: Forearm-Left Response: UnchangedSucceeded @16:16 ALS Assessment Response: UnchangedSucceeded @16:19 Stretcher Response: Unchanged @16:20 Oxygen FlowRate: 3 Device: Nasal Cannula (NC) Response: ImprovedSucceeded Timeline 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,BP: 112/55 M,PULSE: 90,RR: 18 R,SPO2: 98 Ox,ETCO2: ,B,PAIN: 0,GCS: 14, 16:03,Call Received 16:03,Dispatch Notified 16:04,Dispatched 16:04,En Route 16:15,On Scene 16:16,At Patient 16:16,ALS Assessment,Response: UnchangedSucceeded, 16:19,Stretcher,Response: Unchanged 16:20,Oxygen FlowRate: 3 Device: Nasal Cannula (NC) Response: ImprovedSucceeded, 16:22,BP: 198/71 M,PULSE: 95,RR: 18 R,SPO2: 87 Ox,ETCO2: ,BG: ,PAIN: 0,GCS: 14, 16:24,IV Therapy - Saline Lock 0cc 20 ga Site: Forearm-Left,Response: UnchangedSucceeded, [address] [address] EMS Patient Care Report Name: NADIAHALLIEMONIKAGYPSY Room #: 247-P [facility] IN M.R.#: [id number] Admission: 06/28/21 Attend Phys: Shlomo Varma MD Discharge: Date of : 58 Report #: [id number] 16:25,BP: 198/79 M,PULSE: 84,RR: 16 R,SPO2: 97 Ox,ETCO2: ,BG: ,PAIN: 0,GCS: 15, 16:27,Depart Scene 16:44,At Destination 16:53,Call Closed Disclaimer v1.1 Copyright 2021 [employer] This EMS Care Summary contains data elements from the applicable legal record (which may be displayed differently). It is designed to provide pertinent information for the following purposes: continuity of care, clinical quality, and state data reporting. The complete legal record is available to ED staff and administrators of the receiving hospital in [employer]'s Patient Tracker. All data is provided "as is."
[2021-06-28 16:48] VITALS: BP 163/75
[~2021-06-28 16:48] MED LIST changes: +AZITHROMYCIN500 MG PO; +NORVASC5 MG PO; +PEPCID20 MG PO
[2021-06-28 17:28] LABS: ABSOLUTE NEUTROPHILS 5.7 thou/uL (1.4-8.2); BASOPHILS 0.5 % (0.0-2.0); EOSINOPHILS 0.2 % (0.0-3.0); HEMATOCRIT 32.7 % (42.0-52.0); HEMOGLOBIN 10.2 gm/dL (14.0-18.0); LYMPHOCYTES 8.2 % (24.0-44.0); MCH 31.8 pg (26.0-34.0); MCHC 31.3 g/dL (28.0-37.0); MCV 101.8 fL (80.0-100.0); MONOCYTES 8.4 % (1.0-8.0); PLATELET COUNT 261 thou/uL (150-400); POLYS 82.7 % (36.0-66.0); RBC 3.21 mil/uL (4.50-6.00); RDW 15.1 % (10.5-14.5); WBC 6.9 thou/uL (4.0-11.0)
[2021-06-28 17:37] LABS: BUN 17 mg/dL (7-18); CALCIUM 9.4 mg/dL (8.5-10.1); CHLORIDE 102 mmol/L (98-107); CREATININE 0.6 mg/dL (0.7-1.3); GLUCOSE 83 mg/dL (74-106); POTASSIUM 4.8 mmol/L (3.5-5.1); SODIUM 147 mmol/L (136-145)
[2021-06-28 17:42] LABS: BE(vivo) 26.5 mmol/L (-2 to +3); HCO3 56.4 mmol/L (22.0-26.0); PO2 116.2 mmHg (80.0-100.0); pH 7.382 (7.360-7.450); sO2 97.8 % (92.0-98.0)
[2021-06-28 17:42] LABS: ALBUMIN 2.9 g/dL (3.4-5.0); SGOT 26 U/L (15-37); SGPT 19 U/L (30-65); TOTAL BILIRUBIN 0.3 mg/dL (0.2-1.0); TOTAL PROTEIN 6.4 g/dL (6.4-8.2)
[2021-06-28 17:44] LABS: PCO2 97.1 mmHg (35.0-45.0)
[2021-06-28 17:48] LABS: URINE BILIRUBIN 1+ (Negative); URINE BLOOD 2+ (Negative); URINE CLARITY CLEAR; URINE COLOR YELLOW; URINE GLUCOSE-RANDOM* NEGATIVE (Negative); URINE KETONES 2+ (Negative); URINE LEUKOCYTES-REFLEX NEGATIVE (Negative); URINE NITRITE-REFLEX NEGATIVE (Negative); URINE PROTEIN (DIPSTICK) 2+ (Negative); URINE SPECIFIC GRAVITY >= 1.030 (1.005-1.035); URINE UROBILINOGEN 0.2 E.U./dl (0.2-1.0)
[2021-06-28 17:51] LABS: CO2 > 45 mmol/L (21-32)
[2021-06-28 18:06] LABS: BACTERIA-REFLEX 1-9 Few /HPF (None Seen); CASTS None Seen /LPF (None Seen); CRYSTALS None Seen /LPF (None Seen); SQUAMOUS 0-3 Few /LPF (0-3); URINE RBC 3-10 Few /HPF (NONE SEEN); URINE WBC-REFLEX 0-5 Rare /HPF (0-5)
[2021-06-28 23:22] LABS: BE(vivo) 19.4 mmol/L (-2 to +3); HCO3 48.8 mmol/L (22.0-26.0); PO2 109.3 mmHg (80.0-100.0); pH 7.394 (7.360-7.450); sO2 97.7 % (92.0-98.0)
[2021-06-28 23:24] LABS: PCO2 81.7 mmHg (35.0-45.0)
[2021-06-29 04:13] VITALS: BP 148/82
[2021-06-29 06:11] LABS: HEMATOCRIT 30.6 % (42.0-52.0); HEMOGLOBIN 9.6 gm/dL (14.0-18.0); MCH 31.6 pg (26.0-34.0); MCHC 31.4 g/dL (28.0-37.0); MCV 100.6 fL (80.0-100.0); RBC 3.05 mil/uL (4.50-6.00); RDW 15.1 % (10.5-14.5)
[2021-06-29 06:45] LABS: BUN 24 mg/dL (7-18); CALCIUM 9.6 mg/dL (8.5-10.1); CHLORIDE 95 mmol/L (98-107); CREATININE 0.7 mg/dL (0.7-1.3); GLUCOSE 158 mg/dL (74-106); POTASSIUM 4.4 mmol/L (3.5-5.1); SODIUM 144 mmol/L (136-145)
[2021-06-29 06:53] LABS: CO2 > 45 mmol/L (21-32)
[2021-06-29 07:54] VITALS: BP 197/89
--- NOTE | 2021-06-29 10:31 | EKG ---
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 : 1960 Requested By: David Han Order Number: [id number] MD: Yobani Fernandez Measurements Intervals [place] Rate: 90 P: 81 NC: 141 QRS: 29 QRSD: 98 T: 66 QT: 367 QTc: 449 Interpretive Statements Sinus rhythm Atrial premature complex Probable left atrial enlargement Probable anteroseptal infarct, old Baseline wander in lead(s) V6 Compared to ECG 03/04/2021 09:32:04 Atrial premature complex(es) now present Electronically Signed On 06-29-2021 10:31:12 AUTOMATIC EQUIPMENT TECHNICIAN by Yobani Fernandez [email or web address] <ELECTRONICALLY SIGNED> By: Yobani Fernandez MD, FACC 06/29/21 1031 1703 1703 Yobani Fernandez MD, FAC /EPI
[2021-06-29 11:34] LABS: BE(vivo) 21.3 mmol/L (-2 to +3); HCO3 47.7 mmol/L (22.0-26.0); PCO2 64.6 mmHg (35.0-45.0); PO2 93.4 mmHg (80.0-100.0); pH 7.486 (7.360-7.450); sO2 97.3 % (92.0-98.0)
[2021-06-29 16:19] VITALS: BP 170/86
[2021-06-29 20:15] VITALS: BP 156/84
[2021-06-30] VITALS (11 sets, daily range): BP systolic 116–160; BP diastolic 67–94
--- NOTE | 2021-06-30 07:59 | NUR ---
ASSESSMENTS CHARTED, MEDS CHARTED GIVEN. PATIENT AGGITATED AND ANXIOUS AT START OF SHIFT PULLING OFF THE BIPAP, ELEVATED HEART RATE. CIWA SCORE 11. MEDICATED TO SCORE. ASKED RESPIRATORY THERAPIST TO CHANGE OUT MASK OR PAD THE BRIDGE OF HIS NOSE DUE TO THE MASK BREAKING DOWN THE SKIN. CHANGED TO A FULL FACE MASK. SPOKE WITH THE PATIENT'S NEAR THE START OF THE SHIFT.
[2021-06-30 14:02] LABS: BE(vivo) 26.2 mmol/L (-2 to +3); HCO3 55.4 mmol/L (22.0-26.0); PO2 106.4 mmHg (80.0-100.0); pH 7.419 (7.360-7.450); sO2 97.6 % (92.0-98.0)
[2021-06-30 14:03] LABS: PCO2 87.5 mmHg (35.0-45.0)
--- NOTE | 2021-06-30 15:47 | NUR ---
CM REVIEWED PT CHART FOR DC PLANNING. PT REMAINS ON BIPAP WITH INCREASING OXYGEN NEEDS. BASELINE FOR PT IS 3L/NC AT HOME. PT HAS NOT BEEN SEEN BY PT/OT AT THIS TIME. CM CALLED AND SPOKE TO PTS JOSE. SHE REPORTS PTS HOME O2 PROVIDER IS KAILYN IS CARMITA DAVIS. INFORMED PTS PT HAD NOT PARTICPATED IN THERAPY AT THIS TIME HOWEVER ONCE DOES WILL FOLLOW RECOMMENDATIONS FOR DC NEEDS. INTRODUCED SNF AND HH. PT BEGAN COUGHING AND RETURNED TO PHONE INDICATING THE GOAL IS FOR PT TO RETURN HOME ONCE MEDICALLY STABLE TO DO SO. CM WILL CONTINUE TO FOLLOW.
[2021-07-01] VITALS (17 sets, daily range): BP systolic 118–153; BP diastolic 66–85
[2021-07-01 03:28] LABS: HEMATOCRIT 29.8 % (42.0-52.0); HEMOGLOBIN 9.8 gm/dL (14.0-18.0); MCH 32.4 pg (26.0-34.0); MCV 98.1 fL (80.0-100.0); RBC 3.04 mil/uL (4.50-6.00); RDW 15.1 % (10.5-14.5); WBC 9.8 thou/uL (4.0-11.0)
[2021-07-01 03:47] LABS: BUN 29 mg/dL (7-18); CALCIUM 9.1 mg/dL (8.5-10.1); CHLORIDE 95 mmol/L (98-107); CREATININE 0.7 mg/dL (0.7-1.3); GLUCOSE 246 mg/dL (74-106); SODIUM 141 mmol/L (136-145)
[2021-07-01 03:54] LABS: CO2 > 45 mmol/L (21-32)
--- NOTE | 2021-07-01 04:47 | NUR ---
PT RESTING IN NO ACUTE DISTRESS AT THIS TIME.REMAINED ON BIPAP ALL NOC WITH FIO2 OF 30%.PT VERY RESTLESS AND AGITATED WHEN AWAKE,PULLS BIPAP OFF AND SIT UP IN THE BED.ON ALCOHOL WITHDRAWAL MONITORING PER PROTOCOL,CIWR SCORE BEEN AROUND 10-11.GIVEN ATIVAN PER ORDERS.ASSESSMENT COMPLETED DOCUMENTED.
--- NOTE | 2021-07-01 07:30 | NUR ---
PATIENT TRANSFERED TO ICU DUE TO A CHANGE IN MEDICAL STATUS. WILL NEED NEW ORDERS ONCE MEDICALLY APPROPRIATE.
--- NOTE | 2021-07-01 07:53 | NUR ---
ORDERS FOR EVAL AND TREAT HOWEVER Pt TRANSFERRED TO ICU. WILL PLACE ON HOLD AND AWAIT NEW ORDERS WHEN APPROPRIATE
--- NOTE | 2021-07-01 09:58 | NUR ---
VERY AGITATED WHEN AWAKE. WANTS COFFEE & TO EAT. ATIVAN EARLIER,PT SLEPT A LITTLE, NOW AWAKE, YELLING OUT & AGITATE. IN. WILL HAVE SPEECH RE-EVALUATE THIS AM IF POSSIBLE.--VW
--- NOTE | 2021-07-01 11:18 | NUR ---
Case discussed in ICU rounds. Possible transfer out of the unit later today pending his level of aggitation. PT/OT evals requested. Pt is normally on 3liters of o2 at home. Lives with and extended family. He has refused any HH in the past. Will follow along.
--- NOTE | 2021-07-02 02:12 | NUR ---
ALERT AND ORINTED X3 CONFUSED ON TIME. LUNGS COARSE ON 4 LITERS NASAL CANULA. 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 REQUESTED A SNACK THIS EVENING. DENIES ANY PAIN ISSUES. INCONTINENT HAS URINAL AT BEDSIDE. CIWA SCALE IS A 5. PT DOESNT LOOK ANXIOUS. SLEEPING DURING THE NIGHT. WILL CONTINUE TO MONITOR AND ASSESS PER NURSING. CALL LIGHT WITHIN REACH IF NEEDS ASISTANCE.
[2021-07-02 03:02] LABS: CALCIUM 9.2 mg/dL (8.5-10.1); CREATININE 0.7 mg/dL (0.7-1.3); POTASSIUM 4.3 mmol/L (3.5-5.1)
[2021-07-02 04:02] VITALS: BP 150/71
[2021-07-02 07:30] VITALS: BP 149/85
[2021-07-02 11:30] VITALS: BP 135/77
--- NOTE | 2021-07-02 11:48 | NUR ---
Discussed during los with the attending physician, possible dc today pend what therapy recommendation are. Cm visited with pt and ot. He needs post acute rehab. Cm visited with sweta and he disagrees. CM visited with his yandy and sister all on came phone, both of them agrees he needs rehab before being able to go home. mid am, your rehab or [facility] will be fine if they take his insurance per all and yandy. Education with family to encourage him to go to rehab. oh i will per yandy. Checking to see who is in network with [facility] for rehab.
--- NOTE | 2021-07-02 11:59 | NUR ---
[facility] and [facility] going to see if they are in network with [employer] and if he has benefits. Will need insurance auth prior to dc.
--- NOTE | 2021-07-02 14:11 | NUR ---
I have reviewed the documentation by DAPHNEY DICKERSON from 07/02/21 to 07/02/21 and I concur with it. JUAQUIN BOWEN, PT, DPT
[2021-07-02 16:00] VITALS: BP 126/78
[2021-07-02 19:51] VITALS: BP 123/81
--- NOTE | 2021-07-03 01:15 | NUR ---
PT IS SLEEPING. PLEASANT THIS EVENING WITH CARE. STANDS UP TO VOID BUT CALL OUT TO TELL ME BEFORE AND USES CALL LIGHT APPRIOPRIATE. VOIDS IN URINAL LUNGS ARE COARSE. BREATHING TREATEMENTS PER RESPIRATORY. OXYGEN AT 3 LITERS NASAL CANULA. NOT IMPLUSIVE AT THIS TIME. OR ANXIOUS NOTED. ABDOMEN IS FLAT AND BOWEL SOUNDS ACTIVE X4. CALL LIGHT WITHIN REACH. DENIES ANY PAIN ISSUES
[2021-07-03 05:11] VITALS: BP 140/84
[2021-07-03 08:01] VITALS: BP 140/77
[2021-07-03 11:25] VITALS: BP 112/71
--- NOTE | 2021-07-03 13:47 | NUR ---
CHART REVIEWED AND DISCUSSED WITH CARE TEAM. CM SPOKE TO ARTEMIO LINDA WITH CC OF [facility]. CONFIRMED RECEIVED REFERRAL PACKET. SHE INFORMED CM THEY SHOULD BE ABLE TO ACCEPT HOWEVER HE HAS COMPLICATED INS. SHE ASSURED THEY CONTINUED TO WORK ON AUTH. CM WILL FOLLOW FOR ACCEPTANCE.
[2021-07-03 15:46] VITALS: BP 128/77
--- NOTE | 2021-07-03 16:00 | NUR ---
I have reviewed the documentation by TERRANCE GILLESPIE from 07/03/21 to 07/03/21 and I concur with it. JUAQUIN BOWEN, PT, DPT
[2021-07-03 20:11] VITALS: BP 113/69
[2021-07-04 02:54] VITALS: BP 126/80
--- NOTE | 2021-07-04 06:47 | NUR ---
PATIENTS CARES WHERE ASSUMED AT SHIFT CHANGE. PATIENT WAS ASSESSED AND MEDS WHERE PASSED. THIS WAS A PLEASENT MAN. PATIENT DID HAVE A HARD TIME FALLING ASLEEP. PATIENT HAD NO REQUESTES THIS SHIFT. ROUNDS WHERE DONE. THE BED IS IN A LOW AND LOCKED POSITION
[2021-07-04 07:30] VITALS: BP 147/84
[2021-07-04 11:30] VITALS: BP 129/81
--- NOTE | 2021-07-04 14:22 | NUR ---
UNKNOWN AT THIS ITME. IF PT WILL BE MEDICALLY STABLE TO DC OVER THE WEEKEND. PTS INDICATED SHE WAS TOLD EARLY NEXT WEEK PT WOULD DDC. [facility] INFORMED THIS CM THEY ARE UNABLE TO ACCEPT PT AT THIS TIME. CM SPOKE TO [facility]. THEY MOST LIKELY WILL ACCEPT. AUTH BEING SENT FOR APPROVAL AT THIS TIME. [facility] SO WILL LET CM KNOW WHEN BED AVAILABILITY THIS WEEKEND IS CONFIRMED. PLEASE FAX DC ORDERS AND SUMMARY TO [phone] AND CALL REPORT TO [phone] SHOULD PT DC THIS WEEKEND. YOLANDA THIS WEEKEND FOR [facility] IS MELISA AT [phone]. SHE WILL SET UP TRANSPORT. CM SPOKE TO PTS JOSE ALL PARTIES ARE AWARE. NO FURTHER CM INTERVENTIONS NEEDED AT THIS TIME.
[2021-07-04 16:00] VITALS: BP 114/71
[2021-07-04 20:15] VITALS: BP 125/67
[2021-07-05 04:45] VITALS: BP 123/70
[2021-07-05 07:45] VITALS: BP 116/63
--- NOTE | 2021-07-05 09:05 | NUR ---
ASSESSMENTS CHARTED, NOC/O PAIN, UP TO SOB TO VOID, IV FLUIDS INFUSING, PT STATES HE HAS DIFFICULTY FALLING ASLEEP, VSS,REPORT GIVEN TO NEXT SHIFT TO CON'T PPOC.
[2021-07-05 11:54] VITALS: BP 133/73
[2021-07-05 16:27] VITALS: BP 117/78
--- NOTE | 2021-07-05 17:34 | NUR ---
ASSUMED PT CARE THIS MORNING. PT DENIED PAIN THROUGHOUT THE SHIFT AND WAS FREQUENTLY REASSESSED. PT A&OX4 AND COMMUNICATING NEEDS TO STAFF APPROPRIATELY. PT VOIDING WITHOUT ISSUE INTO A URINAL. PT CONSUMED THE MAJORITY OF ALL MEALS. PT BECOMES SOA WITH POSITION CHANGES IN THE BED, WHILE URINATING, AND DURING MEALS. ISSUE RESOLVES WITH REST.
[2021-07-05 19:47] VITALS: BP 132/75
--- NOTE | 2021-07-06 03:48 | NUR ---
Assumed pt care at 1900. Pt is alert and oriented. No sign of distress noted. Pt is stable. Denies pain. Fall precaution in place. Assessment completed and documented. Scheduled meds administered to pt. No acute event through night. Continue to monitor. No further needs at this time.
[2021-07-06 05:07] VITALS: BP 134/82
[2021-07-06 07:45] VITALS: BP 126/78
[2021-07-06 11:09] VITALS: BP 132/83
[2021-07-06 15:06] VITALS: BP 123/73
--- NOTE | 2021-07-06 16:42 | NUR ---
ASSUMED PT CARE THIS MORNING. PT A&OX4 AND COMMUNICATING NEEDS TO STAFF APPROPRIATELY. PT DENIED PAIN AND WAS FREQUENTLY ASSESSED THROUGHOUT THE DAY. PT HAD MILD SOA WITH AMBULATION TO THE BATHROOM. VOIDING WITHOUT ISSUE. PT CONSUMED THE MAJORITY OF MEALS THROUGHOUT THE DAY AND SNACKS.
[2021-07-06 19:40] VITALS: BP 136/72
--- NOTE | 2021-07-07 03:41 | NUR ---
Assumed pt care at 1900. Pt is alert and oriented. No sign of distress noted in pt. Denies any pain. Pt is stable. Vital signs stable. Assessment completed and documented. Scheduled meds administered to pt. No acute event noted in pt. Continue to monitor. No further needs at this time.
[2021-07-07 05:04] VITALS: BP 134/72
[2021-07-07 07:50] VITALS: BP 133/67
--- NOTE | 2021-07-07 10:39 | NUR ---
Assumed care of pt this AM. Pt is A&O x4, on 3L NC, SA on the monitor. Pt denies any pain. Plan to possibly discharge today. No other complaints at this time. Fall education performed & call light within reach.
[2021-07-07 11:40] VITALS: BP 110/63
--- NOTE | 2021-07-07 12:37 | NUR ---
CHART REVIEWED AND DISCUSSED WITH CARE TEAM. CM MET WITH PT THIS DAY. CM ROLE INTRODUCED. INTIALLY PT AGREEABLE TO HH SERVICES. PT THEN SPOKE WITH [facility] AT WHICH TIME PT REFUSED HH SERVICES. CM MET WITH PT AND HE VOICED HIS WISH TO DECLINE HH. HE REPORTS HIS WILL BE THERE TO HELP HIM, IS MAKING ROOM ON THE FIRST LEVEL ON THEIR HOME FOR HIM, AND HE DOES NOT WANT INPT REHAB OR HH SERVICES AT THIS TIME. [facility] ALSO VISITED WITH PT THIS DAY AND HE CONTINUED TO DECLINE HH SERVICES. ASKED PT IS IT WAS OKAY TO CALL PTS . HE VOICED NOT AT THIS TIME SHE WAS TRYING TO CATCH UP ON SLEEP FROM FOOTBALL GAME LAST NIGHT. CM WILL FOLLOW.
[2021-07-07 12:44] VITALS: BP 110/63
[2021-07-07] MEDS ORDERED: PREDNISONE 20 M20 M1 PO (14:04)
[2021-07-07 15:15] VITALS: BP 110/63
--- NOTE | 2021-07-07 15:49 | NUR ---
CM SPOKE TO PTS SISTER AKUA. INFORMED AKUA OF PT BEING MEDICALLY STABLE TO DC HOME. CONFIRMED PTS OXYGEN AT HOME IS WITH [employer]. AKUA INFORMED CM PT DOES HAVE PORTABLE O2 TANK FOR TRANSPORT HOME. HE WOULD JUST NEED A NASAL CANNULA. AKUA AND HER CAN BE HERE IN 1-2 HOURS TO TRANSPORT PT HOME. NURSING STAFF AWARE AND AWARE PT NEEDS NASAL CANNULA FOR PORTABLE TANK. NO FURTHER CM INTERVENTIONS NEEDED AT THIS TIME.
== END 2021-07-07 16:42 | disposition home health service (06) | DRG 189 ==
LOC: ER 16:48 → 2N 19:28 → EROBS 19:28 → ICU 19:28 → 2N 06-29 03:45 → ICU 06-30 17:53 → 2N 07-01 18:45
PROVIDERS: Emergency Medicine; Internal Medicine; Internal Medicine Pulmonary Disease; Nurse Practitioner Family; Pediatrics; ADMIT Hospitalist; ATTEND Hospitalist
PROC: 5A09457 Assistance with Respiratory Ventilation, 24-96 Consecutive Hours, Continuous Positive Airway Pressure (ICD-10-PCS; principal; 2021-06-28)
PROC: 5A09357 Assistance with Respiratory Ventilation, Less than 24 Consecutive Hours, Continuous Positive Airway Pressure (ICD-10-PCS; 2021-07-01)
DX: J96.21 Acute and chronic respiratory failure with hypoxia (principal); J44.1 Chronic obstructive pulmonary disease with (acute) exacerbation; I50.30 Unspecified diastolic (congestive) heart failure; G93.1 Anoxic brain damage, not elsewhere classified; J96.22 Acute and chronic respiratory failure with hypercapnia; F17.210 Nicotine dependence, cigarettes, uncomplicated; E87.5 Hyperkalemia; F10.20 Alcohol dependence, uncomplicated; I35.0 Nonrheumatic aortic (valve) stenosis; E78.5 Hyperlipidemia, unspecified; R13.10 Dysphagia, unspecified; R53.81 Other malaise; I11.0 Hypertensive heart disease with heart failure; Z28.21 Immunization not carried out because of patient refusal
CPT/HCPCS: 10078; 10081